=== PATIENT | male | born 1945 | race Hispanic/Latino ===

== ENCOUNTER 2025-02-15 20:05 | Observation (INO) | payer OTHER ==
[2025-02-15 21:18] LABS: #Basophils 0.08 10x3/uL (0.0-0.2); #Eosinophils 0.36 10x3/uL (0.0-0.5); #Monocytes 0.87 10x3/uL (0.0-1.1); #Neutrophils 4.68 10x3/uL (1.5-8.4); %Basophils 1.1 % (0.0-2.0); %Eosinophils 4.8 % (0.0-6.0); %Lymphocytes 19.3 % (18.0-47.0); %Monocytes 11.7 % (0.0-10.0); %Neutrophils 62.8 % (40.0-75.0); Hematocrit 21.6 % (38.8-50.0); Hemoglobin 6.2 g/dL (13.5-17.5); Mean Corpuscular Hemoglobin 20.5 pg (27.0-33.0); Mean Corpuscular Volume 71.5 fL (81.2-95.1); Platelet Count 289 10x3/uL (150-450); Red Blood Cell (RBC) Count 3.02 10x6/uL (4.32-5.72); White Blood Cell (WBC) Count 7.45 10x3/uL (3.5-10.5)
[2025-02-15 21:31] LABS: ALT (SGPT) 15 U/L (Less than 45); AST (SGOT) 22 U/L (11-34); Albumin 3.7 g/dL (3.1-4.5); Alkaline Phosphatase 107 U/L (40-110); Anion Gap 10 mmol/L (10-20); BUN (Urea Nitrogen) 24 mg/dL (8.4-25.7); Bilirubin, Total 0.2 mg/dL (0.3-1.2); Calc. Creatinine Clearance 0 mL/min (70-130); Calcium 8.6 mg/dL (7.8-10.44); Carbon Dioxide 24 mmol/L (23-31); Chloride 111 mmol/L (98-107); Globulin 3.4 g/dL (2.4-3.5); Glucose 99 mg/dL (83-110); Potassium 4.1 mmol/L (3.5-5.1); Sodium 141 mmol/L (136-145)
[2025-02-15 21:44] LABS: MDiff Complete? YES; Microcytosis MODERATE=15-30 cells (100X) (0-5/hpf); Platelet Adequacy Comment Appears Adequate
[2025-02-16] MEDS ORDERED: Ondansetron PF 4 MG/2 ML Vial IVP PRN (03:06)
[2025-02-16] MEDS ORDERED: Acetaminophen 325 MG TAB PO PRN (03:06)
[2025-02-16] MEDS ORDERED: Dextrose 50% Abboject 50 ML SYRINGE SLOW IVP PRN (03:30)
[2025-02-16] MEDS ORDERED: Glucagon 1 MG/ML KIT IM PRN (03:30)
[2025-02-16 03:37] LABS: #Basophils 0.08 10x3/uL (0.0-0.2); #Eosinophils 0.42 10x3/uL (0.0-0.5); #Monocytes 1.03 10x3/uL (0.0-1.1); #Neutrophils 5.70 10x3/uL (1.5-8.4); %Basophils 0.9 % (0.0-2.0); %Eosinophils 4.7 % (0.0-6.0); %Lymphocytes 18.9 % (18.0-47.0); %Monocytes 11.5 % (0.0-10.0); %Neutrophils 63.8 % (40.0-75.0); Hematocrit 25.2 % (38.8-50.0); Hemoglobin 7.6 g/dL (13.5-17.5); Mean Corpuscular Hemoglobin 22.3 pg (27.0-33.0); Mean Corpuscular Volume 73.9 fL (81.2-95.1); Platelet Count 272 10x3/uL (150-450); Red Blood Cell (RBC) Count 3.41 10x6/uL (4.32-5.72); White Blood Cell (WBC) Count 8.94 10x3/uL (3.5-10.5)
[2025-02-16 03:39] LABS: INR-International Normal Ratio 1.0; PTT 22.8 sec (22.0-33.0); Prothrombin Time 10.9 sec (9.5-12.1)
[2025-02-16 03:40] LABS: Anion Gap 9 mmol/L (10-20); BUN (Urea Nitrogen) 23 mg/dL (8.4-25.7); Calc. Creatinine Clearance 0 mL/min (70-130); Calcium 8.3 mg/dL (7.8-10.44); Carbon Dioxide 23 mmol/L (23-31); Chloride 112 mmol/L (98-107); Glucose 93 mg/dL (83-110); Potassium 3.8 mmol/L (3.5-5.1); Sodium 140 mmol/L (136-145)
[2025-02-16] MEDS ORDERED: Pantoprazole 40 MG VIAL ONE (03:49)
[2025-02-16] MEDS: Pantoprazole 40 MG VIAL IVP SCH (03:53)
[2025-02-16] MEDS: Lisinopril 10 MG TAB PO SCH (09:43)
[2025-02-16 10:10] LABS: Hematocrit 24.9 % (38.8-50.0); Hemoglobin 7.5 g/dL (13.5-17.5)
[2025-02-16 10:43] LABS: Bilirubin, Direct 0.4 mg/dL (0.1-0.3); Bilirubin, Total 0.7 mg/dL (0.3-1.2); Iron 87 ug/dL (65-175); Iron Binding Capacity, Total 415 mcg/dL (261-462)
[2025-02-16 12:59] VITALS: BP 178/76; TEMP 96.8
[2025-02-16 13:17] VITALS: BMI 28.1
[2025-02-16 15:29] LABS: Hematocrit 26.7 % (38.8-50.0); Hemoglobin 8.1 g/dL (13.5-17.5); Platelet Count 269 10x3/uL (150-450)
[2025-02-17] MEDS ORDERED: Pantoprazole 40 MG VIAL IVP SCH (09:00)
== END 2025-02-16 18:53 ==
LOC: CSHERS 20:05 → CSHERHOLD 02-16 03:25 → EEVIPCON 02-16 03:25 → CSHTELE 02-16 08:27
PROVIDERS: ADMIT Internal Medicine; ATTEND Family Medicine
DX: D64.9 Anemia, unspecified (principal); I10 Essential (primary) hypertension; E78.5 Hyperlipidemia, unspecified; E11.9 Type 2 diabetes mellitus without complications; Z88.0 Allergy status to penicillin; Z79.82 Long term (current) use of aspirin; Z79.4 Long term (current) use of insulin; Z87.891 Personal history of nicotine dependence; Z79.899 Other long term (current) drug therapy
CPT/HCPCS: 36415; 36416; 36430; 80048; 80053; 82247; 83540; 83550; 85025; 85046; 85610; 85730; 86850; 86900; 86901; 93005; 94760; 96374; 99285; G0378; J1815; J2470; P9016